=== PATIENT | male | born 1980 | race Caucasian/White ===

== ENCOUNTER 2020-06-11 07:48 | Day surgery (SDC) | payer OTHER ==
[2020-06-09 13:11] VITALS: BMI 34.1
[2020-06-11] MEDS ORDERED: PROPOFOL 20 ML ONE ×2 (10:46)
[2020-06-11] MEDS ORDERED: MIDAZOLAM HCL 2 MG/2 ML SINGLE DOSE VIAL ONE (10:46)
[2020-06-11] MEDS ORDERED: EPINEPHrine 1:1,000 1 MG/1 ML - 30ML VIAL (INJECTION) ONE (11:10)
[2020-06-11] MEDS ORDERED: BUPIVACAINE HCL/PF 2.5 MG/ML - 30 ML VIAL IJ ONE (11:10)
[2020-06-11] MEDS ORDERED: BUPIVACAINE HCL/PF 0.25% (2.5MG/ML) 10 ML VIAL ONE (11:10)
[2020-06-11] MEDS ORDERED: ceFAZolin SODIUM 1 GM VIAL ONE (11:28)
[2020-06-11] MEDS ORDERED: KETOROLAC TROMETHAMINE 30 MG/1 ML VIAL ONE (11:28)
[2020-06-11] MEDS ORDERED: ONDANSETRON 4 MG/2 ML VIAL ONE (11:28)
[2020-06-11] MEDS ORDERED: DEXAMETHASONE SOD PHOSPHATE 4 MG/1 ML VIAL ONE (11:28)
[2020-06-11] MEDS ORDERED: ONDANSETRON 4 MG/2 ML VIAL IVPUSH PRN (12:26)
[2020-06-11] MEDS ORDERED: oxyCODONE HCL 5 MG TABLET PO PRN (12:26)
[2020-06-11] MEDS ORDERED: LACTATED RINGERS SOLUTION 1,000 ML IV SCH (12:30)
[2020-06-11 14:44] VITALS: TEMP 98.1
[2020-06-11 14:49] VITALS: BP 110/70; PULSE 76
== END 2020-06-11 14:20 | disposition home or self-care (01) ==
LOC: FASU 07:48
PROVIDERS: ATTEND Orthopaedic Surgery Sports Medicine
PROC: 0SBD4ZZ Excision of Left Knee Joint, Percutaneous Endoscopic Approach (ICD-10-PCS; principal; 2020-06-11 11:50)
DX: S83.242A Other tear of medial meniscus, current injury, left knee, initial encounter (principal); M65.862 Other synovitis and tenosynovitis, left lower leg; X58.XXXA Exposure to other specified factors, initial encounter; Y93.9 Activity, unspecified; Y92.9 Unspecified place or not applicable
CPT/HCPCS: 88304-TC; 94760